=== PATIENT | female | born 1990 | race American Indian/Alaskan Native ===

== ENCOUNTER 2020-07-23 09:20 | Day surgery (SDC) | payer OTHER ==
[~2020-07-23 09:20] MED LIST: SODIUM CHLORIDE 0.9% 1000 ML 1,000 ML IV SCH
--- NOTE | 2020-07-23 10:04 | Anesthesia Consultation ---
Anesthesia Consult and Med Hx Date of service: 07/23/20 - Airway Anesthetic Teeth Evaluation: Good, Bridges ROM Head & Neck: Adequate Mental/Hyoid Distance: Adequate Mallampati Class: Class I Intubation Access Assessment: Good - Pulmonary Exam CTA: Yes - Cardiac Exam Cardiac Exam: RRR - Pre-Operative Health Status ASA Pre-Surgery Classification: ASA1 Proposed Anesthetic Plan: MAC - Pulmonary Hx Smoking: No Hx Respiratory Symptoms: No - Cardiovascular System Hx Hypertension: No - Central Nervous System CVA: No - Endocrine Hx Renal Disease: No Hx Liver Disease: No Hx Insulin Dependent Diabetes: No Hx Non-Insulin Dependent Diabetes: No Hx Thyroid Disease: No - Other Systems Hx Obesity: No - Additional Comments Anesthesia Medical History Comments: No prior GA. No FHx anesthetic complications.
--- NOTE | 2020-07-23 10:04 | Anesthesia Day of Surgery ---
Anesthesia Day of Surgery - Day of Surgery Patient Examined: Yes Patient H&P Reviewed: Yes Patient is NPO: Yes
[2020-07-23] MEDS ORDERED: LIDOCAINE MPF (2%) 20 MG/1 ML VIAL 5 ML ONE (10:57)
[2020-07-23] MEDS ORDERED: propofoL 200 MG/20 ML VIAL IV ONE (10:57)
--- NOTE | 2020-07-23 11:22 | Procedure Note ---
Date of procedure: 07/22/20 Pre-op diagnosis: Dyspepsia Post-op diagnosis: other (No Peptic Ulcer diseae noted/ Mild to Moderate, Erosive Esophagitis/ Gastritis/ R/O Eosinophilic Esophagitis/ R/O Celiac Disease) Procedure: EGD with Biopsy Anesthesia: MAC Surgeon: SHASHI ROCHA Estimated blood loss: minimal Pathology: list Specimen disposition: to lab Condition: stable Disposition: same day (Treat with PPI,prn Bentyl,OTC Probiotic; avoid aspirin and NSAID for 4 days, otherwise resume home medication and follow up in 1 to 2 weeks ([phone]).)
--- NOTE | 2020-07-23 12:47 | Operative Report ---
PROCEDURE: Esophagogastroduodenoscopy with biopsy. INDICATIONS: This is a 30-year-old -[place] female who has been complaining of dyspeptic symptoms. EGD was done to assess for any associated peptic ulcer disease or any associated celiac disease. DESCRIPTION OF PROCEDURE: EGD was done after getting informed consent with MAC anesthesia. Instrument was passed through the hypopharynx into the esophagus, which showed [id number] erosive esophagitis. Biopsy was done from the distal esophagus to assess for the severity of the erosive esophagitis as well as from the mid esophagus to assess for eosinophilic esophagitis. The stomach showed gastritis. Biopsy was done from the gastric antrum, gastric body and angular incisura to rule out for H. pylori and atrophic gastritis. The pylorus was patent. The duodenum in the first and second portion appeared normal. Biopsy was done from the second part to rule out for possible celiac disease. ASSESSMENT: Dyspepsia, [id number] erosive esophagitis, gastritis, rule out eosinophilic esophagitis, rule out celiac disease. No peptic ulcer disease noted. PLAN: To treat the patient with PPI, p.r.n. dose of Bentyl, encourage the patient to take probiotics. Avoid aspirin and aspirin-related products and have the patient follow up in the office in 1-2 weeks' time. Further treatment adjustment will be according to the biopsy findings. The procedure was done in the GI lab with assistance of the GI lab team, which included RN, Whit Denise, as well as the certified composites technician and with assistance of Anesthesia. JOB# [id number] ANNA/NICK
--- NOTE | 2020-07-23 13:15 | Post Anesthesia Evaluation ---
- Post Anesthesia Evaluation Patient Participated: Yes Airway Patent: Yes Stable Respiratory Function: Yes Nausea/Vomiting: No Temp > 96.8F: Yes Pain Manageable: Yes Adequeate Hydration: Yes Anesthesia Complications: No
[2020-07-23 14:43] VITALS: BP 137/99
== END 2020-07-23 09:21 | disposition home or self-care (01) ==
LOC: GIO 09:20
DX: R10.13 Epigastric pain (principal); K20.90 Esophagitis, unspecified without bleeding; K31.89 Other diseases of stomach and duodenum; K29.70 Gastritis, unspecified, without bleeding; Z79.899 Other long term (current) drug therapy; Z88.0 Allergy status to penicillin
CPT/HCPCS: 43239; 88305; 88342; J2704; J7030